=== PATIENT | female | born 1960 | race Caucasian/White ===

== ENCOUNTER 2018-07-10 21:29 | Observation (INO) ==
[2018-07-10] MEDS ORDERED: Isovue-370 500 ML INFUS..BTL IV ONE (21:56)
[2018-07-10 22:07] LABS: Basophils % 0.6 %; Eosinophils # 0.1 K/mcL (0.0-0.6); Eosinophils % 0.8 %; Hematocrit 44.2 % (35.3-44.9); Hemoglobin 14.8 g/dL (11.5-15.4); Immature Granulocytes % 0.3 % (0-4); Lymphocytes # 3.1 K/mcL (0.6-4.6); Lymphocytes % 42.4 %; Mean Corpuscular HGB Conc 33.5 g/dL (31.6-35.5); Mean Corpuscular Hemoglobin 31.8 pg (28.0-33.3); Mean Corpuscular Volume 95.1 fL (83.0-100.0); Mean Platelet Volume 10.6 fL (9.4-12.4); Monocytes # 0.7 K/mcL (0.0-1.3); Neutrophils # 3.4 K/mcL (1.6-8.9); Platelet Count 246 K/mcL (140-400); Red Blood Count 4.65 M/mcL (3.82-4.97); Red Cell Distribution Width 12.3 % (11.5-14.5); Segmented Neutrophils % 46.9 %
--- NOTE | 2018-07-10 22:13 | Emergency Department Note ---
Disposition Clinical Impression: Chest pain Qualifiers: Chest pain type: unspecified Qualified Code(s): R07.9 - Chest pain, unspecified Disposition: Admitted As Inpatient Condition: Fair Time of Disposition: 00:25 Chest Pain HPI - General Chief Complaint: ED Chest Pain Stated Complaint: CP Time Seen by Provider: 07/10/18 21:41 Source: patient, family Mode of arrival: ambulatory Limitations: no limitations Vital Signs Reviewed: Yes Nursing Notes Reviewed: Yes - History of Present Illness HPI Narrative: 57-year-old female with history of hypertension, diabetes presents for evaluation of chest pain. Patient states she has had intermittent chest pain for the past 3 weeks. Noted chest pain is left-sided under her left breast. Denies E nausea vomiting or diaphoresis. Patient denies any notable aggravating or alleviating symptoms. Does not have a history of any heart attacks. Does have a recent family history worse sister at an early age because of a heart attack. became concerned today because the patient seemed to be disoriented and anxious. Patient is also complaining of lip numbness. Denies any fevers. No abdominal pain. No facial droop slurred speech. No focal weaknesses. No sensory deficits. Severity scale (1-10): 7 - Related Data Allergies Allergy/AdvReac Type Severity Reaction Status Date / Time niacin Allergy Hives Verified 07/10/18 22:14 All systems ED: reviewed and negative except as stated. Constitutional: Denies: fever Cardiovascular: Reports: chest pain Respiratory: Denies: cough, dyspnea Gastrointestinal: Denies: abdominal pain, nausea, vomiting Chest Pain PMH - Past Medical History Medical history: Reports: diabetes, glaucoma, hyperlipidemia, other - Social History Smoking Status: Never smoker Alcohol use: Reports: occasionally Drug use: Reports: none Physical Exam - General Limitations: no limitations General appearance: alert, in no apparent distress, anxious - Head Head exam: atraumatic, normocephalic, normal inspection - Eye Eye exam: Present: normal appearance, PERRL, EOMI - ENT ENT exam: normal exam, normal oropharynx, mucous membranes moist - Neck Neck exam: Present: normal inspection, trachea midline - Chest Chest inspection: Present: normal inspection, symmetric chest wall rise - Respiratory Respiratory exam: Present: normal lung sounds bilaterally. Absent: respiratory distress - Cardiovascular Cardiovascular exam: Present: regular rate, normal rhythm. Absent: systolic murmur - Abdominal Exam Abdominal exam: Present: soft, Non-Tender - Extremities Exam Extremities exam: Present: normal inspection. Absent: pedal edema - Back Exam Back exam: Present: normal inspection. Absent: CVA tenderness (R), CVA t enderness (L) - Neurological Exam Neurological exam: Present: alert, oriented X3, CN II-XII intact - Expanded Neurological Exam Patient oriented to: Present: person, place, time Speech: Present: fluid speech Cranial nerves: EOM function (II, III, IV, ): Normal, facial sensation (V): Normal, facial palsy (VII): Normal, spinal accessory function (XI): Normal, tongue deviation (XII): Normal Cerebellar function: finger to nose: Normal Motor strength - LUE: 5/5 Motor strength - RUE: 5/5 Motor strength - LLE: 5/5 Motor strength - RLE: 5/5 Coma Scale Eye Opening: Spontaneous Coma Scale Motor Response: Obeys Commands Coma Scale Verbal Response: Oriented Coma Scale Total: 15 - Skin Skin exam: Present: warm, dry, intact, normal color Course Course Narrative: Patient seen and examined. Patient does not have any focal neurologic deficits on exam. Patient does appear quite anxious. Patient's complaining of chest pain as well as some neurologic symptoms will get CT chest, neck, and head as well as chest pain evaluation. Disposition pending. - Reevaluation(s) Reevaluation #1: Patient seen and examined. Patient resting comfortably. Denying any chest pain. Patient's agreeable with said plan of care. Time: 00:25 Vital Signs Temperature 98.1 F 07/10/18 21:46 Pulse Rate 85 07/10/18 21:46 Respiratory Rate 16 07/10/18 21:46 Blood Pressure 159/109 07/10/18 21:46 O2 Sat by Pulse Oximetry 100 07/10/18 21:46 Temperature 98.0 F 07/11/18 01:14 Pulse Rate 69 07/11/18 01:14 Respiratory Rate 16 07/11/18 01:14 Blood Pressure 126/84 07/11/18 01:14 O2 Sat by Pulse Oximetry 98 07/11/18 01:14 Oxygen Delivery Oxygen Delivery Room Air Chest Pain - MDM Narrative Medical decision making narrative: Patient presented for concerns of chest pain. Patient was also complaining of some numbness around the lips. Patient noted chest pain left sided without radiation. Does have risk factors including diabetes, early family history as well as dig gender and age. Patient denies any chest pain currently in the ED. Given the patient's complaints of neuro symptoms as well as chest pain the patient had a CT angiogram of the head neck as well as head. Patient also got a CT angiogram of the chest which did not show any evidence of dissection or PE. Patient was given aspirin. Basic labs are clinically unremarkable. Negative troponin. Patient's heart score moderate risk. Patient will be admitted to hospital service for serial troponins and further cardiopulmonary monitoring. - Lab Data Lab results reviewed: Yes I reviewed the patient's lab results. Result diagrams: 07/10/18 21:45 07/10/18 21:45 Lab Results 07/10/18 07/10/18 07/10/18 Range/Units 21:45 21:45 21:45 WBC 7.2 (4.3-11.1) K/mcL RBC 4.65 (3.82-4.97) M/mcL Hgb 14.8 (11.5-15.4) g/dL Hct 44.2 (35.3-44.9) % MCV 95.1 (83.0-100.0) fL MCH 31.8 (28.0-33.3) pg MCHC 33.5 (31.6-35.5) g/dL RDW 12.3 (11.5-14.5) % Plt Count 246 (140-400) K/mcL MPV 10.6 (9.4-12.4) fL Immature Gran % 0.3 (0-4) % Seg Neutrophils % 46.9 % Lymphocytes % 42.4 % Monocytes % 9.0 % Eosinophils % 0.8 % Basophils % 0.6 % Neutrophils # 3.4 (1.6-8.9) K/mcL Lymphocytes # 3.1 (0.6-4.6) K/mcL Monocytes # 0.7 (0.0-1.3) K/mcL Eosinophils # 0.1 (0.0-0.6) K/mcL Basophils # 0.0 (0.0-0.2) K/mcL PT 11.0 (9.4-12.1) Seconds INR 1.0 APTT 36.5 H (26.0-36.0) Seconds Sodium (136-145) mEq/L Potassium (3.5-5.1) mEq/L Chloride (98-107) mEq/L Carbon Dioxide (23-29) mEq/L BUN (6-20) mg/dL Creatinine (0.60-1.20) mg/dL Est GFR ( Amer) (> 60) Est GFR (Non-Af Amer) (> 60) BUN/Creatinine Ratio (6-26) Glucose (70-105) mg/dL Calculated Osmolality (280-300) Calcium (8.6-10.3) mg/dL Troponin I (< 0.04) ng/mL B-Natriuretic Peptide 31 (Less than 100) pg/mL 07/10/18 Range/Units 21:45 WBC (4.3-11.1) K/mcL RBC (3.82-4.97) M/mcL Hgb (11.5-15.4) g/dL Hct (35.3-44.9) % MCV (83.0-100.0) fL MCH (28.0-33.3) pg MCHC (31.6-35.5) g/dL RDW (11.5-14.5) % Plt Count (140-400) K/mcL MPV (9.4-12.4) fL Immature Gran % (0-4) % Seg Neutrophils % % Lymphocytes % % Monocytes % % Eosinophils % % Basophils % % Neutrophils # (1.6-8.9) K/mcL Lymphocytes # (0.6-4.6) K/mcL Monocytes # (0.0-1.3) K/mcL Eosinophils # (0.0-0.6) K/mcL Basophils # (0.0-0.2) K/mcL PT (9.4-12.1) Seconds INR APTT (26.0-36.0) Seconds Sodium 139 (136-145) mEq/L Potassium 4.1 (3.5-5.1) mEq/L Chloride 103 (98-107) mEq/L Carbon Dioxide 31 H (23-29) mEq/L BUN 18 (6-20) mg/dL Creatinine 0.99 (0.60-1.20) mg/dL Est GFR ( Amer) > 60 (> 60) Est GFR (Non-Af Amer) 58 L (> 60) BUN/Creatinine Ratio 18 (6-26) Glucose 114 H (70-105) mg/dL Calculated Osmolality 291 (280-300) Calcium 10.0 (8.6-10.3) mg/dL Troponin I < 0.03 (< 0.04) ng/mL B-Natriuretic Peptide (Less than 100) pg/mL - EKG Data EKG attestation: Yes I reviewed and interpreted this EKG. EKG shows normal: sinus rhythm Rate: normal Rhythm: NSR [place]/QRS: normal P waves: LAE When compared to previous EKG there are: no significant changes Interpretation: no acute changes, nonspecific ST-T wave changes Heart Score - Score History: Moderately Suspicious EKG: Non Specific repolarisation Disturbance Age: 45-65 Risk Factors: 1-2 risk factors Troponin: Less than normal limit HEART Score Total: 4 S.B.A.R. - S.B.A.R. Situation: Demographics Background: Presenting Complaint Assessment: Vital Signs, Course and respsone to treatment, Patient/Family Expectation Recommendation: Barrier(s) to disposition, Recommendation based on pending studies, treatments, or consults S.B.A.R. Report Given to: Hospitalist SLylyBLylyArBian Repor Time: 00:26 Attestation Statement - Attestation Attestation: Resident Attestation: I examined this patient and my medical decision making was reviewed with the Resident Physician. I agree with the documented findings, disposition and treatment plan as described except to the extent set forth below. We independently had [id number] contact with the patient. Resident Physician Dr. Roberts. See there note for further details and disposition. Patient presented to the emergency department for evaluation of chest pain. Upon arrival to the room she was noted to have slowed speech delayed thought and difficulty with word finding as well as complaining of paresthesias around the lips. On evaluation she does not have any focal findings. Findings are symmetric in nature and it appears to be a global thought process problem. Stroke alert was not activated secondary to the lack of focal findings. Patient's chest pain had started earlier today while she was at work. Boyfriend is at bedside stating that she was off last week with no symptoms. She return t o work today and developed the left-sided chest pain. She has been under a lot of stress recently as she has lost both her sister as well as her father to heart disease. Sister earlier in the year. Father has had bypass surgery 3 months ago. She has been visiting him on a regular basis. The patient's current state she is able to give some etiology of symptoms saying that her tingling is around her lips. She is emotionally labile at this time his started crying on multiple occasions. Patient will undergo further evaluation with both a cardiac workup as well as a neuro workup including a CT as well as a CTA head and neck to rule out any specific pathology that would benefit from intervention at [facility]. Workup otherwise unremarkable. Patient will be admitted for further inve stigation and treatment. No cranial nerve deficits - 2 through 12 intact. Strength and sensation in the upper lower extremities is and intact. Finger to nose and heel to osorio is intact. Patient with slow speech but not slurred. Able to state her name and who she is with.
[2018-07-10 22:16] LABS: Activated Partial Thrombo Time 36.5 Seconds (26.0-36.0)
[2018-07-10 22:20] LABS: Troponin I < 0.03 ng/mL (< 0.04)
[2018-07-10 22:21] LABS: BUN/Creatinine Ratio 18 (6-26); Blood Urea Nitrogen 18 mg/dL (6-20); Carbon Dioxide 31 mEq/L (23-29); Chloride 103 mEq/L (98-107); Glucose 114 mg/dL (70-105); Osmolality,Calculated 291 (280-300); Potassium 4.1 mEq/L (3.5-5.1); Sodium 139 mEq/L (136-145); eGFR For Non-African Americans 58 (> 60)
[2018-07-11] MEDS ORDERED: Aspirin 325 MG TABLET PO ONE (00:14)
[2018-07-11] MEDS ORDERED: Acetaminophen 325 MG TABLET PO PRN (02:30)
[2018-07-11] MEDS ORDERED: Dextrose Gel 15 GM/37.5 ML TUBE PO PRN ×2 (02:30)
[2018-07-11] MEDS ORDERED: *HR* Dextrose 50 % in Water (Syg) 50 ML SYRINGE IVP PRN (02:30)
[2018-07-11] MEDS ORDERED: Nitroglycerin 0.4 MG TAB.SUBL SL PRN (02:30)
[2018-07-11] MEDS ORDERED: D5% in Water 1,000 ML IVC PRN (02:30)
[2018-07-11] MEDS ORDERED: Naloxone 0.4 MG/ML INJ IVP PRN (02:30)
[2018-07-11] MEDS ORDERED: *HR* Morphine 2 MG/ML SYRINGE IVP PRN (02:30)
--- NOTE | 2018-07-11 02:39 | Internal Med History&Physical ---
Date of Encounter: 07/11/18 Time of Encounter: 02:00 Internal Medicine - H&P: HPI Chief complaint: chest pain Admitted From: Emergency Dept Plans for Post Hospital Care: Home History of present illness: Ms. Carter is a 57 year old female who presents with a three-week history of chest pain associated with dyspnea, facial numbness, neck pain, jaw pain, and pain radiating to her left arm. She also has chest pain and dyspnea with exertion. She describes the pain as heavy and pressure-type sensation. After worrying abo ut it for 3 weeks, she came to the ER for evaluation. Initial workup was negative. Nonetheless, she was admitted to hospitalist service. Upon my assessment of the patient, she is chest pain-free presently. She reiterates the above history. She did have extensive workup in ER for her numbness of her lips which she attributes to being anxious and nervous. She denies any other focal neurologic deficits. She is quite worried about her chest pain, however. She has a very strong family history of premature coronary artery disease, IA, and sudden . Her mother of a heart attack at the age of 50. She just lost her youngest sister to a massive IA at 47 years of age. She has multiple aunts and uncles who have on her mother's side from heart disease in their 50s. Patient does not smoke. Her other cardiac risk factors include borderline diabetes and history of hyperlipidemia. Past Med Surg Social Fam HX - Past Medical History Attestation: Yes The following information was validated with the patient. Source: patient, other (ER notes) Medical history: diabetes, glaucoma, hyperlipidemia Additional medical history: hypotension Psychiatric history: no psych history - Past Surgical History Surgical History: Additional surgical history: Spinal surgery, tonsilectomy, knee surgery - Social History Smoking Status: Never smoker Alcohol use: occasionally Drug use: none Current living situation: Home Activity Level: Independent ambulation Recent Out of Country Travel Within the Last 8 Weeks: No - Family History Mother Living Status: Age at : 50 Cause of : IA Hx Family Cardiac Disorders: Yes (IA) Father Hx Family Cardiac Disorders: Yes (IA, CABG,) Sister Living Status: Age at : 47 Cause of : IA Hx Family Cardiac Disorders: Yes (IA) Hx Family Endocrine Disorder: Yes (DM) Internal Medicine - H&P: Meds Allergy/AdvReac Type Severity Reaction Status Date / Time niacin Allergy Hives Verified 07/10/18 22:14 - Constitutional Constitutional: no chills, no fever(s), no night sweats - EENT Eyes: no blurry vision, no change in vision Ears: no ear pain, no tinnitus Nose, mouth and throat: no nasal congestion, no sinus pressure, no sore throat - Cardiovascular Cardiovascular ROS IM: chest pain, dyspnea, dyspnea on exertion, no orthopnea, no syncope - Respiratory Respiratory: no cough, no hemoptysis, no chest congestion, no excessive phlegm production, no change in phlegm color - Gastrointestinal Gastrointestinal: no abdominal pain, no diarrhea, no heartburn, no hematemesis, no hematochezia, no melena, no nausea, no vomiting - Genitourinary Genitourinary: no dysuria, no flank pain, no hematuria - Musculoskeletal Musculoskeletal ROS IM: no arthralgias, no back pain - Integumentary Integumentary IM: no rash, no jaundice - Neurological Neurological ROS: paresthesias (lips), no dizziness, no focal weakness, no frequent falls, no headache(s) - Psychiatric Psychiatric: anxiety, no depression - Endocrine Endocrine IM: no polydipsia, no polyuria - Allergic/Immunologic Allergic/Immunologic: no wheezing, no GI upset with certain foods - Constitutional Vitals: Temp Pulse Resp BP Pulse Ox 98.0 F 69 16 126/84 98 07/11/18 01:14 07/11/18 01:14 07/11/18 01:14 07/11/18 01:14 07/11/18 01:14 General appearance: Present: cooperative, A&O X 3, pleasant, no acute distress, answers questions appropriately Exam: see below - Head Head exam: Present: atraumatic, normal inspection - Eye Eye exam: Present: EOMI, PERRL. Absent: scleral icterus Pupils: Present: normal accommodation - ENT ENT exam: Present: mucous membranes dry, normal exam, normal oropharynx - Neck Neck exam general surgery: Present: full ROM, supple. Absent: tenderness, nuchal rigidity, thyromegaly - Respiratory Respiratory exam: Present: CTAB. Absent: chest wall tenderness, rales, rhonchi, wheezes - Cardiovascular Cardiovascular exam: Present: RRR, +S1, +S2. Absent: diastolic murmur, systolic murmur - GI/Abdominal GI/Abdominal exam: Present: normal bowel sounds, soft. Absent: guarding, hepatomegaly, mass, rebound, splenomegaly, tenderness - Extremities Exam Extremities exam: Present: calf tenderness, normal capillary refill, normal inspection, warm, radial pulses palpable and symmetrical. Absent: pedal edema, tenderness - Back Exam Back exam: Present: normal inspection. Absent: CVA tenderness (L), CVA tenderness (R) - Neurological Exam Neurological exam: Present: alert, CN II-XII intact, oriented X3, reflexes normal, no focal deficits, strengths equal and symetr throughout. Absent: motor sensory deficit, facial droop, speech deficit - Psychiatric Psychiatric exam: Present: normal affect, normal mood - Skin Skin exam: Present: dry, intact, warm Internal Med - H&P Results - Labs CBC & Chem 7: 07/10/18 21:45 07/10/18 21:45 Labs: Short CBC 07/10/18 Range/Units 21:45 WBC 7.2 (4.3-11.1) K/mcL Hgb 14.8 (11.5-15.4) g/dL Hct 44.2 (35.3-44.9) % Plt Count 246 (140-400) K/mcL Neutrophils # 3.4 (1.6-8.9) K/mcL BMP 07/10/18 21:45 Sodium 139 Potassium 4.1 Chloride 103 Carbon Dioxide 31 H BUN 18 Creatinine 0.99 Glucose 114 H Calcium 10.0 Cardiac Enzymes 07/10/18 Range/Units 21:45 Troponin I < 0.03 (< 0.04) ng/mL - EKG Data -: EKG Interpreted by Myself - EKG Data Prior EKG available for review: no EKG comments: 07/11/18 02:43 NSR; no acute ST changes - Impressions ITS Impressions Chest CTA 07/10/18 21:56 IMPRESSION: 1. No evidence of pulmonary embolism or acute pulmonary abnormality. 2. Scattered tiny nodules in the right lung. Please see follow-up guidelines below. RECOMMENDATIONS: Fleischner Society guidelines for follow-up and management of incidentally detected pulmonary nodules: Multiple Solid Nodules: Nodule size less than 6 mm In a low-risk patient, no routine follow-up. In a high-risk patient, optional CT at 12 months. - Low risk patients include individuals with minimal or absent history of smoking and other known risk factors. - High risk patients include individuals with a history or smoking or known risk factors. Radiology 2017 http://pubs.rsna.org/doi/full/10.1148/radiol.[email or web address] D/ / Kar Kerr MD / Kar Kerr MD Interpreting Provider: Kar Kerr MD Chest X-Ray 07/10/18 21:56 IMPRESSION: 1. No active pulmonary disease. D/ / Jerry Mendoza MD / Jerry Mendoza MD Interpreting Provider: Jerry Mendoza MD Neck CTA 07/10/18 21:56 IMPRESSION: 1. No acute intracranial abnormality. 2. Normal CTA of the head and neck. D/ / Abdoulaye Tran / Abdoulaye Tran Interpreting Provider: Abdoulaye Tran Angiography CT 07/10/18 21:57 IMPRESSION: 1. No acute intracranial abnormality. 2. Normal CTA of the head and neck. D/ / Abdoulaye Tran / Abdoulaye Tran Interpreting Provider: Abdoulaye Tran - Diagnostic Studies Chest x-ray Status: image reviewed by me (negative) - Assessment and plan (1) Chest pain Current Visit: Yes Status: Acute Assessment and plan: 1. Will trend troponins and EKG's. 2. Will order lipid profile. 3. Start aspirin daily. 4. Will order ECHO and stress testing today if troponins remain negative. Qualifiers: Chest pain type: precordial pain Qualified Code(s): R07.2 - Precordial pain (2) Family history of premature CAD Current Visit: Yes Status: Acute Assessment and plan: 1. Given strong FH, I recommend cardiology consultation to assess patient for possible LHC. 2. I personally favor LHC, but I'll defer to cardiology. 3. Work-up as above otherwise. (3) DVT prophylaxis Current Visit: Yes Status: Acute Assessment and plan: 1. Heparin SQ.
[2018-07-11 04:48] LABS: Troponin I < 0.03 ng/mL (< 0.04)
[2018-07-11 04:50] LABS: Alanine Aminotransferase 23 Units/L (7-52); Albumin 4.3 g/dL (3.5-5.7); Albumin/Globulin Ratio 1.8 (1.1-2.2); Alkaline Phosphatase 68 Units/L (34-104); Aspartate Amino Transferase 19 Units/L (13-39); BUN/Creatinine Ratio 22 (6-26); Bilirubin,Total 0.5 mg/dL (0.3-1.0); Blood Urea Nitrogen 17 mg/dL (6-20); Calcium 9.6 mg/dL (8.6-10.3); Carbon Dioxide 25 mEq/L (23-29); Chloride 106 mEq/L (98-107); Chol/HDL Ratio 3.5 (0-4.9); Cholesterol 255 mg/dL (< 200); Globulin 2.4 g/dL (2.4-3.5); Glucose 103 mg/dL (70-105); HDL Cholesterol 72 mg/dL (40-59); LDL Cholesterol,Calculated 152 mg/dL (0-99); Magnesium 2.2 mg/dL (1.6-2.6); Osmolality,Calculated 292 (280-300); Potassium 3.9 mEq/L (3.5-5.1); Sodium 140 mEq/L (136-145); Total Protein 6.7 g/dL (6.4-8.9); Triglycerides 154 mg/dL (< 150); eGFR For Non-African Americans > 60 (> 60)
[2018-07-11 04:53] LABS: Prothrombin Time 11.3 Seconds (9.4-12.1)
[2018-07-11 04:55] LABS: Activated Partial Thrombo Time 36.5 Seconds (26.0-36.0)
[2018-07-11] MEDS: Insulin LISPRO 300 UNITS/3 ML VIAL SQ SCH ×2 (05:45→12:20)
[2018-07-11] MEDS ORDERED: *HR* Heparin 5,000 UNIT/ML VIAL SQ SCH (06:00)
[2018-07-11] MEDS ORDERED: Aspirin 81 MG TAB.CHEW PO SCH (09:00)
--- NOTE | 2018-07-11 15:03 | Discharge Summary ---
- NOTES TO OUTPATIENT PROVIDER Notes to Outpatient Provider: Admitted with chest pain. ACS rule out implemented. EKG without any acute ischemic changes. Troponins negative. Stress test negative for perfusion defect or ischemia. Consider noncardiac cause. On day of discharge with the patient she did have and to report to me that she notes she has intermittent episodes of tachycardia with heart rate in the 140s-150s. These events are transient and subside quickly. She may benefit from a Holter monitor and cardiology follow-up. There were no tachyarrhythmias noted on telemetry during this stay. Orders not resulted at time of discharge: Pending orders 07/10/18 21:56 ECG 12 lead ECG [ECG] Stat 07/11/18 02:33 NM rina perf SPECT multi [NM] Routine 07/11/18 06:00 ECG 12 lead ECG [ECG] AM 0600 Date of Encounter: 07/11/18 Time of Encounter: 14:57 - Discharge Diagnosis (1) Chest pain Priority: Primary Status: Ruled-out Qualifiers: Chest pain type: precordial pain Qualified Code(s): R07.2 - Precordial pain (2) Family history of premature CAD Priority: Secondary Status: Acute Assessment and Plan: Significant family history Follow-up with cardiology in 2-3 weeks for further evaluation See PCP within one week 81 mg aspirin daily Start statin daily (3) DVT prophylaxis Priority: Secondary Status: Acute Hospital course: Ms. Carter is a 57 year old female who presented with chest pain. EKG without any ischemic changes. Serial troponins negative. Stress test without any perfusion defects or ischemia. Of note the patient did mention some transient tachycardia recorded admitted with heart rate in the 140s-150s lasting a few seconds and then subsiding. She is to follow-up with PCP within 1 week of discharge. Additionally, I have sent a referral for cardiology follow-up in 2-3 weeks. I was able to confirm the tachycardia on her fit bit recording however no tachyarrhythmias were found on telemetry while inpatient. She may benefit from Holter monitoring in the outpatient setting. She will be discharged on 81 mg daily aspirin, statin. Defer to cardiology follow-up for all other medications. She has been instructed to follow a cardiac/diabetic diet, to lose weight and to eat low-cholesterol foods. Discharge discussed with: patient, nurse - Time Spent with Patient Total time spent providing and/or coordinating discharge services: Less than 30 minutes - Discharge Medications Prescriptions: Aspirin Enteric Coated [Aspirin EC] 81 mg PO DAILY 30 Days #30 tablet. Omeprazole [PriLOSEC] 40 mg PO DAILY 30 Days #30 cap Home Medications: Aspirin Enteric Coated [Aspirin EC] 81 mg PO DAILY 30 Days #30 tablet. 07/11/18 [Rx] Omeprazole [PriLOSEC] 40 mg PO DAILY 30 Days #30 cap 07/11/18 [Rx] Allergies/Adverse Reactions: Allergy/AdvReac Type Severity Reaction Status Date / Time niacin Allergy Hives Verified 07/10/18 22:14 Date of admission: 07/11/18 00:32 Primary care physician: PCP NONE Discharging clinician: Quintin Denise Anticipated date of discharge: 07/11/18 - Constitutional Vitals: Temp Pulse Resp BP Pulse Ox 97.9 F 62 12 121/83 95 07/11/18 12:20 07/11/18 12:20 07/11/18 12:20 07/11/18 12:20 07/11/18 12:20 General appearance: Present: cooperative, A&O X 3, pleasant, no acute distress, answers questions appropriately Exam: see exam - Head Head exam: Present: atraumatic, normocephalic - Eye Eye exam: Present: PERRL, conjuntiva pink, sclera anicteric Pupils: Present: PERRL - Neck Neck exam general surgery: Present: supple, trachea midline. Absent: lymphadenopathy - Respiratory Respiratory exam: Present: CTAB. Absent: accessory muscle use, rales, rhonchi, wheezes - Cardiovascular Cardiovascular exam: Present: RRR, +S1, +S2. Absent: diastolic murmur, gallop, rubs, systolic murmur - GI/Abdominal GI/Abdominal exam: Present: normal bowel sounds, soft, no peritoneal signs. Absent: distended, tenderness - Extremities Exam Extremities exam: Present: warm, radial pulses palpable and symmetrical. Absent: calf tenderness, cyanotic, pedal edema - Neurological Exam Neurological exam: Present: CN II-XII intact, oriented X3, no focal deficits. Absent: pronater drift, facial droop, speech deficit - Skin Skin exam: Present: dry, intact - Patient Status Disposition: Home, Self-Care Condition: Fair Functional capacity at discharge: independent ambulation Overall status at discharge: patient is back to baseline - Discharge Instructions Follow Up With: NONE,PCP [Primary Care Provider] - - Diet and Activity Activity: increase activity as tolerated, resume usual activities as tolerated Diet: diabetic diet, low fat, low cholesterol, low salt diet
[2018-07-11 15:28] VITALS: BP 125/79
--- NOTE | 2018-07-13 17:54 | Electrocardiograph Report ---
[place] [id number] Test Date: 2018-07-10 Pat Name: Ofelia Carter Department: [id number] Room: 3B36 Gender: F Board Winder: : 1960 Requested By: Shyam Guzman Order Number: [id number] Reading MD: Asya Lizarraga Measurements Intervals [place] Rate: 90 P: 74 AL: 139 QRS: 42 QRSD: 90 T: 37 QT: 385 QTc: 472 Interpretive Statements Sinus rhythm Probable left atrial enlargement Low voltage, precordial leads Electronically Signed On 07-13-2018 17:52:21 EST by Asya Lizarraga
== END 2018-07-11 17:05 | disposition home or self-care (01) ==
LOC: EMEROOARM 21:29 → 3BNU 21:29
PROVIDERS: ADMIT Internal Medicine; ATTEND Internal Medicine

== ENCOUNTER 2021-02-28 07:04 | Observation (INO) ==
[2021-02-28] MEDS ORDERED: Morphine Sulfate 2 MG/ML SYRINGE IVP ONE (07:29)
[2021-02-28] MEDS ORDERED: Ondansetron 4 MG/2 ML VIAL IVP ONE (07:29)
[2021-02-28 07:56] LABS: Basophils # 0.1 K/mcL (0.0-0.2); Basophils % 0.6 %; Eosinophils # 0.1 K/mcL (0.0-0.6); Eosinophils % 0.8 %; Hematocrit 44.9 % (35.3-44.9); Hemoglobin 14.8 g/dL (11.5-15.4); Immature Granulocytes % 0.4 % (0-4); Lymphocytes # 2.8 K/mcL (0.6-4.6); Lymphocytes % 33.1 %; Mean Corpuscular Hemoglobin 31.8 pg (28.0-33.3); Mean Corpuscular Volume 96.6 fL (83.0-100.0); Mean Platelet Volume 10.4 fL (9.4-12.4); Monocytes # 0.6 K/mcL (0.0-1.3); Monocytes % 7.1 %; Neutrophils # 4.9 K/mcL (1.6-8.9); Platelet Count 263 K/mcL (140-400); Red Blood Count 4.65 M/mcL (3.82-4.97); Red Cell Distribution Width 12.3 % (11.5-14.5); White Blood Count 8.4 K/mcL (4.3-11.1)
[2021-02-28 08:17] LABS: Alanine Aminotransferase 19 Units/L (7-52); Albumin 4.7 g/dL (3.5-5.7); Albumin/Globulin Ratio 1.7 (1.1-2.2); Alkaline Phosphatase 80 Units/L (34-104); Aspartate Amino Transferase 18 Units/L (13-39); BUN/Creatinine Ratio 17 (6-26); Bilirubin,Indirect 0.4 mg/dL (0.0-1.0); Bilirubin,Total 0.4 mg/dL (0.3-1.0); Blood Urea Nitrogen 14 mg/dL (6-20); Calcium 9.9 mg/dL (8.6-10.3); Carbon Dioxide 25 mEq/L (23-29); Chloride 104 mEq/L (98-107); Globulin 2.8 g/dL (2.4-3.5); Glucose 115 mg/dL (70-105); Lipase 20 Units/L (11-82); Osmolality,Calculated 285 (280-300); Sodium 137 mEq/L (136-145); Total Protein 7.5 g/dL (6.4-8.9); eGFR For African Americans > 60 (> 60); eGFR For Non-African Americans > 60 (> 60)
[2021-02-28] MEDS ORDERED: Isovue-370 500 ML BOTTLE IVP ONE (08:34)
[2021-02-28] MEDS ORDERED: Morphine Sulfate 2 MG/ML SYRINGE IVP STA (08:35)
[2021-02-28 08:36] LABS: Troponin I < 0.03 ng/mL (< 0.04)
[2021-02-28 09:03] LABS: Bilirubin,Urine Negative (Negative); Blood,Urine Negative (Negative); Clarity,Urine Clear (Clear); Color,Urine Light-Yellow (Yellow); Glucose,Urine (UA) Normal (Normal); Ketones,Urine Negative (Negative); Leukocyte Esterase,Urine Negative (Negative); Nitrite,Urine Negative (Negative); PH,Urine 7.5 pH Units (5.0-8.0); Protein,Urine Negative (Neg-Trace); Specific Gravity,Urine 1.015 (1.010-1.025); Urobilinogen,Urine Normal (Normal)
[2021-02-28] MEDS ORDERED: Piperacillin/Tazobactam 3.375 GM in Water for inj. (sterile) 20 ML IVP ONE (10:48)
[2021-02-28] MEDS ORDERED: Naloxone 0.4 MG/ML INJ IVP PRN (11:18)
[2021-02-28] MEDS ORDERED: Melatonin 3 MG TABLET PO PRN (11:18)
[2021-02-28] MEDS: *HR* Heparin 5,000 UNIT/ML VIAL SQ SCH ×2 (13:38→23:10)
[2021-02-28] MEDS: 0.9 % Sodium Chloride 1,000 ML IVC SCH ×2 (13:38→20:34)
[2021-02-28] MEDS: Piperacillin/Tazobactam 3.375 GM in 0.9 % Sodium Chloride Mini Bag 100 ML IVPB SCH ×2 (16:30→23:09)
[2021-02-28] MEDS: Ondansetron 4 MG/2 ML VIAL IVP PRN (20:34)
[2021-02-28] MEDS ORDERED: Latanoprost 2.5 ML BOTTLE RIGHT EYE SCH (21:00)
[2021-03-01 05:32] LABS: Hematocrit 38.5 % (35.3-44.9); Hemoglobin 12.4 g/dL (11.5-15.4); Mean Corpuscular HGB Conc 32.2 g/dL (31.6-35.5); Mean Corpuscular Hemoglobin 31.7 pg (28.0-33.3); Mean Corpuscular Volume 98.5 fL (83.0-100.0); Mean Platelet Volume 10.6 fL (9.4-12.4); Platelet Count 195 K/mcL (140-400); Red Blood Count 3.91 M/mcL (3.82-4.97); Red Cell Distribution Width 12.7 % (11.5-14.5); White Blood Count 4.2 K/mcL (4.3-11.1)
[2021-03-01 05:50] LABS: Alanine Aminotransferase 16 Units/L (7-52); Albumin 3.6 g/dL (3.5-5.7); Albumin/Globulin Ratio 1.8 (1.1-2.2); Alkaline Phosphatase 45 Units/L (34-104); Aspartate Amino Transferase 15 Units/L (13-39); BUN/Creatinine Ratio 9 (6-26); Bilirubin,Total 0.6 mg/dL (0.3-1.0); Blood Urea Nitrogen 7 mg/dL (6-20); Calcium 8.6 mg/dL (8.6-10.3); Carbon Dioxide 25 mEq/L (23-29); Chloride 109 mEq/L (98-107); Glucose 102 mg/dL (70-105); Osmolality,Calculated 292 (280-300); Sodium 142 mEq/L (136-145); Total Protein 5.6 g/dL (6.4-8.9); eGFR For African Americans > 60 (> 60); eGFR For Non-African Americans > 60 (> 60)
[2021-03-01] MEDS: *HR* Heparin 5,000 UNIT/ML VIAL SQ SCH ×4 (06:46→23:22)
[2021-03-01] MEDS ORDERED: *HR* FentaNYL (PF) 100 MCG/2 ML VIAL ONE (08:10)
[2021-03-01] MEDS ORDERED: *HR* Propofol 200 MG/20 ML VIAL IVP ONE (08:11)
[2021-03-01] MEDS ORDERED: Ondansetron 4 MG/2 ML VIAL ONE (08:11)
[2021-03-01] MEDS ORDERED: *HR* Rocuronium Bromide 50 MG/5 ML VIAL ONE (08:11)
[2021-03-01] MEDS ORDERED: Lidocaine -MPF 2% 2 ML VIAL ONE (08:11)
[2021-03-01] MEDS ORDERED: *HR* Succinylcholine 200 MG/10 ML VIAL IVP ONE (08:11)
[2021-03-01] MEDS ORDERED: Lidocaine HCL 4 ML Topical Solution (Laryng-O-Jet Kit Sterile Pak) TP ONE (08:11)
[2021-03-01] MEDS ORDERED: Isovue-300 50ML VIAL ONE (08:52)
[2021-03-01] MEDS ORDERED: *HR* Midazolam HCl 2 MG/2 ML VIAL ONE (09:04)
[2021-03-01] MEDS ORDERED: *HR* HYDROMORPHONE 2 MG/ML VIAL ONE (10:08)
[2021-03-01] MEDS: Piperacillin/Tazobactam 3.375 GM in 0.9 % Sodium Chloride Mini Bag 100 ML IVPB SCH ×3 (11:41→23:21)
[2021-03-01] MEDS: Ondansetron 4 MG/2 ML VIAL IVP PRN (12:05)
[2021-03-01] MEDS ORDERED: D5% in Water 1,000 ML IVC PRN (12:54)
[2021-03-01] MEDS ORDERED: *HR* Dextrose 50 % in Water (Vial) 50 ML VIAL IVP PRN (12:54)
[2021-03-01] MEDS ORDERED: Dextrose Gel 15 GM/37.5 ML TUBE PO PRN ×2 (12:54)
[2021-03-01] MEDS ORDERED: Naloxone 0.4 MG/ML INJ IVP PRN (14:51)
[2021-03-01] MEDS ORDERED: Melatonin 3 MG TABLET PO PRN (14:51)
[2021-03-01] MEDS ORDERED: Ondansetron 4 MG/2 ML VIAL IVP PRN (14:51)
[2021-03-01] MEDS ORDERED: Insulin LISPRO 300 UNITS/3 ML VIAL SUBQ SCH ×2 (16:30→21:00)
[2021-03-01] MEDS ORDERED: Latanoprost 2.5 ML BOTTLE RIGHT EYE SCH (21:00)
[2021-03-02] MEDS: Piperacillin/Tazobactam 3.375 GM in 0.9 % Sodium Chloride Mini Bag 100 ML IVPB SCH (08:05)
[2021-03-02] MEDS ORDERED: Aspirin Enteric Coated 81 MG Tablet PO SCH (09:00)
[2021-03-02 12:12] VITALS: BP 120/84; PULSE 64; TEMP 97.8; O2SAT 97
[2021-03-02] MEDS: *HR* Heparin 5,000 UNIT/ML VIAL SQ SCH (13:04)
== END 2021-03-02 13:34 | disposition home or self-care (01) ==
LOC: EMEROOARM 07:04 → 3BNU 07:04 → SUATTDRO 12:29 → 3BNU 13:20
PROVIDERS: ADMIT Internal Medicine; ATTEND Internal Medicine